=== PATIENT | female | born 1990 | race Caucasian/White ===

== ENCOUNTER → 2017-03-14 | Outpatient (CLI) | payer OTHER ==
--- NOTE | 2017-03-14 15:12 | DI ---
US PELVIC-TRANSVAGINAL,03/14/2017 11:35 AM: Clinical History: Pelvic pain Previous Exam: None at this facility. Findings: Multiple transvaginal grayscale and color Doppler sonographic images are obtained through the pelvis, and demonstrate a normal-appearing retroverted uterus measuring 8.7 x 4.3 x 5.3 cm with an endometri al stripe measuring 10 mm. A few small nabothian cysts were noted. The right ovary is normal measuring 4.4 x 2.2 x 2.8 cm and contain a few maturing follicles. The left ovary measured 4.7 x 2.4 x 2.8 cm also containing a few maturing follicles. There is normal preserved Doppler flow. There is no free fluid within the cul-de-sac. Impression: Multiple peripheral ovarian follicles. In the proper clinical setting, this could be indicative of po lycystic ovarian syndrome. Correlate clinically. Otherwise normal.
== END ==
LOC: US 11:32
PROVIDERS: ATTEND Nurse Practitioner Women's Health
DX: R10.2 Pelvic and perineal pain (principal)
CPT/HCPCS: 76830

== ENCOUNTER → 2017-03-14 | Outpatient (CLI) | payer OTHER | LOC: MOB LAB 10:49 | PROVIDERS: ATTEND Nurse Practitioner Women's Health | DX: R10.2 Pelvic and perineal pain (principal) | CPT/HCPCS: 87491; 87591 ==